=== PATIENT | female | born 1985 | race African-American/Black ===

== ENCOUNTER 2017-10-29 20:42 | Day surgery (SDC) | payer OTHER, SELFPAY ==
[2017-10-29 21:22] VITALS: BP 102/63; TEMP 98.1; BMI 29.5
--- NOTE | 2017-10-30 00:59 | SS ---
LABOR AND DELIVERY TRIAGE NOTE DATE OF EVALUATION: 10/29/2017 REGULAR PHYSICIAN: Lazaro Poole M.D., [facility]. EVALUATING PHYSICIAN: Richie Prabhakar M.D. CHIEF COMPLAINT: Lower abdominal pressure. HISTORY OF PRESENT ILLNESS: Ms. Montoya is a 32-year-old black, G4, P3-0-0-3 with a reported estimated date of confinement of 01/15/2018, who presents complaining of lower abdominal pressure and possible contractions over the last 24-48 hours. She states that she thinks she has had contractions, but has been unable to time them. She denies ruptured membranes or vaginal bleeding. care has been with one visit at [facility] and she says that she sees Dr. Lazaro Poole there. PAST OBSTETRICAL HISTORY: Includes vaginal deliveries x3. PAST MEDICAL HISTORY: None. PAST SURGICAL HISTORY: Umbilical hernia. CURRENT MEDICATIONS: vitamins. ALLERGIES: No known allergies. SOCIAL HISTORY: Denies tobacco, alcohol, or illicit drug use. FAMILY HISTORY: Unremarkable. REVIEW OF SYSTEMS: Denies ruptured membranes, vaginal bleeding, nausea, vomiting, fever or chills. PHYSICAL EXAMINATION: VITAL SIGNS: Stable and she is afebrile in triage tonight. ABDOMEN: Soft, nontender and gravid. No palpable contractions are noted. On vaginal examination, her cervix is closed, posterior, and high. Her cervix is soft, but uneffaced. heart rate tracing is stable. No discernible contractions are seen. ASSESSMENT: 1. A 28 and 6/7 week intrauterine . 2. No evidence of labor. PLAN: The patient will be discharged to home. She was given complete labor precautions and told to follow up with Dr. Poole at [facility]. She voices understanding of her discharge instructions. [facility]ERT[facility]on
== END 2017-10-29 22:10 | disposition home or self-care (01) ==
LOC: L&D/OP 20:42
PROVIDERS: ATTEND Obstetrics & Gynecology
DX: O99.89 Other specified diseases and conditions complicating pregnancy, childbirth and the puerperium (principal); R10.30 Lower abdominal pain, unspecified; Z3A.28 28 weeks gestation of pregnancy
CPT/HCPCS: 99282

== ENCOUNTER 2021-02-16 10:05 | Emergency (ER) | payer OTHER | END 2021-02-16 12:04 | disposition home or self-care (01) | LOC: ERS 10:05 | DX: S13.9XXA Sprain of joints and ligaments of unspecified parts of neck, initial encounter (principal); V43.62XA Car passenger injured in collision with other type car in traffic accident, initial encounter | CPT/HCPCS: 70450; 72125 ==